=== PATIENT | female | born 1975 | race Caucasian/White ===

== ENCOUNTER 2020-06-06 09:29 | Emergency (ER) | payer MEDICAID ==
[~2020-06-06] VITALS: Ht 162.6 cm; Wt 86.2 kg
[2020-06-06 09:44] VITALS: Ht 162.6 cm; Wt 86.2 kg
[2020-06-06 11:29] LABS: CARBON DIOXIDE 24.4 mmol/L (21-32); CHLORIDE SERUM 103 mmol/L (98-107); CREATININE SERUM 0.8 mg/dL (0.6-1.0); GFR1 > 60 mL/min; GLUCOSE SERUM 89 mg/dL (74-106); POTASSIUM SERUM 3.6 mmol/L (3.5-5.1); SODIUM SERUM 137 mmol/L (136-145)
[2020-06-06 11:34] LABS: ALBUMIN 3.5 g/dL (3.4-5.0); ALKALINE PHOSPHATASE 76 U/L (46-116); ALT/SGPT 26 U/L (14-59); AST/SGOT 14 U/L (15-37); BILIRUBIN TOTAL 0.4 mg/dL (0.20-1.00); LIPASE 160 IU/L (73-393); TOTAL PROTEIN, SERUM 6.9 g/dL (6.4-8.2)
[2020-06-06 11:36] LABS: BASOPHIL % 0.4 % (0-2); PLATELET COUNT 307 x10^3mcL (130-400); RED CELL DISTRIBUTION WIDTH 13.6 % (11.5-14.5)
[2020-06-06 12:28] VITALS: BP 148/100
== END 2020-06-06 12:28 | disposition home or self-care (01) ==
LOC: ED 09:29
PROVIDERS: Emergency Medicine
DX: S80.861A Insect bite (nonvenomous), right lower leg, initial encounter (principal); Z88.0 Allergy status to penicillin; W57.XXXA Bitten or stung by nonvenomous insect and other nonvenomous arthropods, initial encounter; Y93.89 Activity, other specified; Y92.89 Other specified places as the place of occurrence of the external cause; Y99.8 Other external cause status
CPT/HCPCS: J2270; J2405; J7030

== ENCOUNTER 2020-06-07 11:22 | Emergency (ER) | payer MEDICAID ==
[~2020-06-07] VITALS: Ht 162.6 cm; Wt 86.2 kg
[2020-06-07 11:26] VITALS: BP 137/89; Ht 162.6 cm; Wt 86.2 kg
== END 2020-06-07 12:10 | disposition home or self-care (01) ==
LOC: ED 11:22
DX: L03.115 Cellulitis of right lower limb (principal); Z88.0 Allergy status to penicillin; Z98.890 Other specified postprocedural states; Z90.710 Acquired absence of both cervix and uterus; W57.XXXD Bitten or stung by nonvenomous insect and other nonvenomous arthropods, subsequent encounter

== ENCOUNTER 2020-07-21 00:34 | Emergency (ER) | payer OTHER ==
[~2020-07-21] VITALS: Ht 162.6 cm; Wt 87.5 kg
[2020-07-21 00:53] VITALS: Ht 162.6 cm; Wt 87.5 kg
[2020-07-21 02:43] VITALS: BP 124/79
== END 2020-07-21 02:34 | disposition left against medical advice (07) ==
LOC: ED 00:34
DX: M77.8 Other enthesopathies, not elsewhere classified (principal); I10 Essential (primary) hypertension; Z90.710 Acquired absence of both cervix and uterus; Z98.890 Other specified postprocedural states; Z88.0 Allergy status to penicillin

== ENCOUNTER 2020-11-01 02:45 | Emergency (ER) | payer OTHER ==
[~2020-11-01] VITALS: Ht 167.6 cm; Wt 113.4 kg
[2020-11-01 03:29] VITALS: BP 165/92; Ht 167.6 cm; Wt 113.4 kg
== END 2020-11-01 05:45 | disposition home or self-care (01) ==
LOC: ED 02:45
DX: S63.501A Unspecified sprain of right wrist, initial encounter (principal); Z88.0 Allergy status to penicillin; Z98.890 Other specified postprocedural states; Z90.710 Acquired absence of both cervix and uterus; X58.XXXA Exposure to other specified factors, initial encounter; Y93.89 Activity, other specified; Y92.89 Other specified places as the place of occurrence of the external cause; Y99.8 Other external cause status